=== PATIENT | female | born 2000 | race Caucasian/White ===

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

== ENCOUNTER 2023-11-17 07:38 | Inpatient (IN) | payer BC ==
[2023-11-17] MEDS ORDERED: Tranexamic Acid 1,000 MG in Sodium Chloride 0.9% 100 ML IV PRN (08:39)
[2023-11-17] MEDS ORDERED: Carboprost Tromethamine 250 MCG/1 ML Amp IM PRN (08:39)
[2023-11-17] MEDS ORDERED: Acetaminophen 325 MG Tab PO PRN (08:39)
[2023-11-17] MEDS ORDERED: Misoprostol 400 MCG (4 X 100 MCG TAB) RECTAL PRN (08:39)
[2023-11-17] MEDS ORDERED: Sodium Chloride 0.9% 10 ML Syringe FLUSH PRN (08:39)
[2023-11-17] MEDS ORDERED: Methylergonovine 0.2 MG/1 ML Amp IM PRN (08:39)
[2023-11-17] MEDS ORDERED: Ondansetron 4 MG/2 ML SDV IVPUSH PRN (08:39)
[2023-11-17 08:48] LABS: HEMATOCRIT 36.9 % (37.0-47.0); HEMOGLOBIN 12.8 g/dL (12.0-16.0); MEAN CORPUSCULAR HEMOGLOBIN 31.8 pg (27.0-34.0); MEAN CORPUSCULAR HGB CONC 34.7 g/dL (33.0-35.0); MEAN CORPUSCULAR VOLUME 91.6 fL (80-100); RED BLOOD CELL COUNT 4.03 10^6/uL (4.2-5.4); WHITE BLOOD CELL COUNT,WBC 12.2 10^3/uL (5.0-10.0)
[2023-11-17] MEDS: Lactated Ringers 1,000 ML IV SCH (09:50)
[2023-11-17] MEDS: Oxytocin/Normal Saline 30 UNIT/500 ML BAG IV SCH (10:20)
[2023-11-17] MEDS: Benzocaine/Menthol 20%-0.5% Spray 78 GM Cannister TOP PRN (13:00)
[2023-11-17] MEDS: Witch Hazel Medicated Pads 100/Jar TOP PRN (13:00)
[2023-11-17] MEDS ORDERED: Oxytocin 10 Units/1 ML SDV IM PRN (14:43)
[2023-11-17] MEDS ORDERED: Simethicone 80 MG Tab.Chew PO PRN (14:43)
[2023-11-17] MEDS: Lactated Ringers 1,000 ML IV ONE (18:42)
[2023-11-17] MEDS: Lidocaine 1% 30 ML SDV INJECT ONE (18:43)
[2023-11-18] MEDS: Docusate Sodium 100 MG Cap PO PRN (09:12)
[2023-11-18] MEDS: Prenatal Multivitamin with Calcium/Folic Acid/Iron Tab PO SCH (09:12)
[2023-11-18] MEDS: Ibuprofen 800 MG Tab PO PRN (09:12)
[2023-11-18] MEDS: Acetaminophen 325 MG Tab PO PRN (22:13)
== END 2023-11-19 12:25 | disposition home or self-care (01) | DRG 560 ==
LOC: DL.OBCHECK 07:38 → DL.OB 07:58 → OBSVTOIN 10:10 → DL.OB 10:10
PROVIDERS: ADMIT Family Medicine; ATTEND Family Medicine
PROC: 10E0XZZ Delivery of Products of Conception, External Approach (ICD-10-PCS; principal; 2023-11-17)
PROC: 0HQ9XZZ Repair Perineum Skin, External Approach (ICD-10-PCS; 2023-11-17)
DX: O77.0 Labor and delivery complicated by meconium in amniotic fluid (principal); Z37.0 Single live birth; Z3A.40 40 weeks gestation of pregnancy; O70.0 First degree perineal laceration during delivery
CPT/HCPCS: 36415; 59409; 85027; A9270-GY; J2590; J7120